=== PATIENT | male | born 1960 | race Caucasian/White ===

== ENCOUNTER 2019-01-14 17:47 | Inpatient (IN) | payer BC ==
--- NOTE | 2019-01-14 20:36 | MRI ---
MRI LUMBAR SPINE NONCONTRAST: DATE: 01/14/2019 HISTORY: 58-year-old male with low back pain and acute lower extremity weakness and numbness, intermittent COMPARISON: None FINDINGS: For the purposes of this report, it will be assumed that there are 5 lumbar-type vertebrae. Vertebral body heights are maintained. No scoliosis. Conus medullaris terminates at L1. Cauda equina is arranged in a symmetrical distribution throughout the thecal sac. T12-L1:Normal L1-2: Normal L2-3::Moderate to severe disc space narrowing. Mild endplate irregularity. Small focus of bone marrow edema around Schmorl's node at posterior aspect of L1 inferior endplate. Minimal degenerative retrolisthesis of L2 on L3 and diffuse disc bulge encroach upon ventral aspect of spinal canal, but t here is no significant central stenosis and no neural foraminal stenosis. Small bilateral facet joint effusions without high-grade facet DJD. L3-4::Disc space maintained. No central or neural foraminal stenosis. Mild to moderate bilateral face t DJD. Fluid between the L3 and L4 spinous processes. Severe bone marrow edema throughout the L3 and L4 spinous processes. Surrounding soft tissue edema in the bilateral posterior perivertebral spa ce extends laterally, extends superiorly up to the T12-L1 level, and inferiorly down to the sacral level. . L4-5: Bilateral L4 pars interarticularis defects resulting in grade 1 anterolisthesis of L4 on L5. Se michele disc space narrowing with endplate irregularity and Modic type I marrow edema of endplates. There is bone marrow edema in the bilateral facet complexes. Although there is no bony central spinal canal stenosis at the disc space level, there is a prominent epidural fat pad posteriorly and laterally that results in mild to moderate stenosis of the thecal sac at the disc space level. Howeve r, slightly superior to the disc space level, the transverse diameter of both the spinal canal and thecal sac are moderately narrowed. There is severe right neural foraminal stenosis with compression and deformity of the exiting right L4 nerve root by the pedicle superior to it and by lateral component of disc bulge and vertebral body inferior to it. Moderate stenosis of the left neural adina en. L5-S1:Disc space maintained. Mild disc bulge. No central stenosis. Mild bilateral neural foraminal st enosis. IMPRESSION: 1) bilateral L4 spondylolysis causing grade 1 spondylolisthesis at L4-5. 2) somewhat severe inflammatory/edematous changes throughout the posterior elements at L4-5, occurrin g between the spinous processes, with fluid collection between the spinous processes, and edema in the posterior paraspinal soft tissues radiating outward covering wide area. 3) severe degenerative disc disease at L4-5 with Modic type I marrow edema. 4) severe right neural foraminal stenosis at L4-5, with significant compression of the exiting right L4 nerve root. 5) bone marrow edema and surrounding soft tissue edema involving bilateral L4-5 facet complexes.
[2019-01-14] MEDS ORDERED: Ondansetron PF 4 MG/2 ML Vial ONE (22:17)
[2019-01-14] MEDS ORDERED: Cefepime 2 GM VIAL ONE (22:17)
[2019-01-14] MEDS ORDERED: Morphine 4 MG/ML VIAL ONE (22:17)
[2019-01-14] MEDS ORDERED: Sodium Chloride 0.9% 100 ML ONE (22:17)
[2019-01-14 22:27] LABS: #Basophils 0.1 thou/uL (0.0-0.2); #Eosinphils 0.1 thou/uL (0.0-0.7); #Lymphocytes 2.5 thou/uL (1.20-3.40); #Neutrophils 8.2 thou/uL (1.40-6.50); %Basophils 0.7 % (0.0-1.0); %Eosinophils 0.7 % (0.0-10.0); %Lymphocytes 21.2 % (21.0-51.0); %Monocytes 8.4 % (0.0-10.0); %Neutrophils 69.1 % (42.0-75.0); Hemoglobin 14.9 g/dL (14.0-18.0); Mean Corpuscular HGB CONC 35.2 g/dL (32.0-36.0); Mean Corpuscular Hemoglobin 32.6 pg (27.0-31.0); Mean Corpuscular Volume 92.4 fL (78.0-98.0); Platelet Count 210 thou/uL (130-400); RBC Distribution Width 11.4 % (11.5-14.5); Red Blood Cell (RBC) Count 4.57 mill/uL (4.70-6.10); White Blood Cell (WBC) Count 11.8 thou/uL (4.8-10.8)
[2019-01-14 22:49] LABS: ALT (SGPT) 39 U/L (8-55); AST (SGOT) 29 U/L (5-34); Albumin 4.5 g/dL (3.5-5.0); Alkaline Phosphatase 76 U/L (40-150); Anion Gap 14 mmol/L (10-20); BUN (Urea Nitrogen) 15 mg/dL (8.4-25.7); Bilirubin, Total 1.1 mg/dL (0.2-1.2); Calc. Creatinine Clearance 0 mL/min (70-130); Calcium 9.9 mg/dL (7.8-10.44); Carbon Dioxide 20 mmol/L (22-29); Chloride 100 mmol/L (98-107); Estimated GFR-MDRD Greater than 90; Globulin 2.4 g/dL (2.4-3.5); Glucose 100 mg/dL (70-105); Potassium 4.1 mmol/L (3.5-5.1); Protein, Total 6.9 g/dL (6.0-8.3); Sodium 130 mmol/L (136-145)
[2019-01-14] MEDS ORDERED: Ondansetron PF 4 MG/2 ML Vial IVP PRN (23:56)
[2019-01-14] MEDS ORDERED: Ondansetron ODT 4 MG TAB SL PRN (23:56)
[2019-01-15] MEDS ORDERED: Acetaminophen 325 MG TAB PO PRN (00:21)
[2019-01-15 00:31] VITALS: BMI 31.6
[2019-01-15] MEDS: Sodium Chloride 0.9% 1,000 ML IV SCH ×4 (00:42→23:28)
[2019-01-15] MEDS ORDERED: Vancomycin HCl 1 GM in Premix Bag 1 BAG IVPB SCH ×2 (00:45→09:00)
[2019-01-15] MEDS ORDERED: Morphine 2 MG/ML SYRINGE SLOW IVP PRN (00:50)
[2019-01-15] MEDS: Morphine 4 MG/ML VIAL SLOW IVP PRN ×4 (00:59→20:47)
--- NOTE | 2019-01-15 06:12 | HP ---
PRIMARY CARE DOCTOR: Dr. Berny Connell. CODE STATUS: Full code. TIME OF EVALUATION: 2300 hours. CHIEF COMPLAINT FOR THIS PATIENT: Severe pain in the lower back. HISTORY OF PRESENT ILLNESS: A 58-year-old male patient, past medical history of arthritis, but no other significant problems, came to the hospital after having severe back pain in the lower back. The patient reported that when he was trying to walk, he was unable to due to the pain. No clear triggers, no alleviating factors. He did report some leg weakness when he bends his back and he feels that legs are giving out, however, during physical exam, his strength is at baseline. Symptoms were reported as severe, 10/10, sudden onset. REVIEW OF SYSTEMS: CONSTITUTIONAL: No fever, chills, or generalized weakness. RESPIRATORY: No cough, sputum production, or shortness of breath. CARDIOVASCULAR: No chest pain or palpitation. GASTROINTESTINAL: No nausea. No vomiting, diarrhea, or abdominal pain. QUALITY CONTROL SCIENTIST: No dizziness, headache, or feeling lightheaded. GENITOURINARY: No burning on urination. BACK/SPINE/EXTREMITIES: The patient has lower lumbar spine severe pain with difficulty walking. All other systems were reviewed and negative except for the findings mentioned above. PAST MEDICAL HISTORY: As mentioned in HPI. PAST SURGICAL HISTORY: Staph to top of thigh below buttock. SOCIAL HISTORY: The patient uses tobacco, smokes 4 to 5 cigarettes a day. Lives at home with family. FAMILY HISTORY: Mother had a cancer. The father had renal cell carcinoma. KNOWN ALLERGIES: No known drug allergies. REPORTED MEDICATIONS: Tramadol for pain. PHYSICAL EXAMINATION: VITAL SIGNS: Blood pressure 159/87, heart rate 80, respiratory rate 22, temperature 98.2. Pain 10. Oxygen saturation was 98% on room air. GENERAL APPEARANCE: The patient is alert, oriented, not in acute distress. HEENT: Eyes, normal conjunctivae. Moist oral mucosa. Anicteric. No JVD. RESPIRATORY: Bilateral air entry. No rales. No wheezes. Symmetric expansion. CARDIOVASCULAR: Normal rate and regular rhythm. No murmurs. No gallops. No edema. ABDOMEN: Soft. Normal bowel sounds. MUSCULOSKELETAL: Baseline range of motion and strength except for lower extremities that seems to be weaker when the patient bends his back. The patient has a small tumefaction in the lower lumbar spine area that is painful to touch. SKIN: Warm, intact. No pallor. No rash. No redness. Peripheral pulses are present. Capillary refill seems to intact. NEUROLOGIC: No evidence of any new focal weakness. Cranial nerves seems to be intact. PSYCHIATRIC: The patient is in good mood. No anxiety. Optimal judgment. IMAGING STUDIES: Lumbar spine MRI was done. 1. The patient had bilateral L4 spondylosis causing grade 1 spondylolisthesis at L4-L5. 2. Somewhat severe inflammatory erythematous changes throughout the posterior elements at L4-L5, occurring in between the venous processes with fluid collection between the spinous processes and edema, posterior paraspinal soft tissue radiating all the way covering wide area. Severe degenerative disk disease at L4-L5 with Modic type 1 marrow edema. Severe right neural foraminal stenosis at L4-L5 with significant compression of the exiting right L4 nerve root. Surrounding bone marrow edema and surrounding soft tissue edema involving bilateral L4-L5 facet complexes. LABORATORY DATA: Reviewed. The patient has white count 11.8, hemoglobin 14.9, MCV 92.4, and platelet count 210. Chemistry; sodium 130, potassium 4.1, chloride 100, carbon dioxide 20, anion gap 14, BUN 15, creatinine 0.8. GFR normal. Glucose normal. Rest of the chemistry was normal. LFTs were normal. C-reactive protein 10.5. ASSESSMENT AND PLAN: The patient will be placed in the hospital with following medical problems: 1. Possible epidural abscess. Neurosurgery has been called for recommendations. The patient has been started on antibiotics and pain medication for symptoms control. 2. Hyponatremia, sodium 130, this is minimal. The patient will receive some normal saline. We will follow levels and treat accordingly. 3. Deep venous thrombosis prophylaxis. 4. Severe pain, needing opioid medications for optimal control. This will place the patient at high risk for complication from treatment. Job ID: [id number]
[2019-01-15 06:32] LABS: #Basophils 0.1 thou/uL (0.0-0.2); #Eosinphils 0.1 thou/uL (0.0-0.7); #Lymphocytes 2.4 thou/uL (1.20-3.40); #Monocytes 0.7 thou/uL (0.11-0.59); #Neutrophils 4.7 thou/uL (1.40-6.50); %Basophils 0.6 % (0.0-1.0); %Eosinophils 1.8 % (0.0-10.0); %Lymphocytes 29.9 % (21.0-51.0); %Monocytes 9.3 % (0.0-10.0); %Neutrophils 58.4 % (42.0-75.0); Hemoglobin 13.2 g/dL (14.0-18.0); Mean Corpuscular Hemoglobin 31.8 pg (27.0-31.0); Mean Corpuscular Volume 93.6 fL (78.0-98.0); Mean Platelet Volume 7.3 fL (7.4-10.4); Platelet Count 185 thou/uL (130-400); RBC Distribution Width 11.6 % (11.5-14.5); Red Blood Cell (RBC) Count 4.15 mill/uL (4.70-6.10)
[2019-01-15 07:02] LABS: Anion Gap 9 mmol/L (10-20); BUN (Urea Nitrogen) 13 mg/dL (8.4-25.7); Calc. Creatinine Clearance 166 mL/min (70-130); Calcium 9.2 mg/dL (7.8-10.44); Carbon Dioxide 24 mmol/L (22-29); Chloride 107 mmol/L (98-107); Estimated GFR-MDRD Greater than 90; Glucose 83 mg/dL (70-105); Potassium 3.9 mmol/L (3.5-5.1); Sodium 136 mmol/L (136-145)
[2019-01-15] MEDS: Cefepime 2 GM in Sodium Chloride 0.9% 100 ML IVPB SCH ×2 (08:49→20:46)
[2019-01-15] MEDS: Vancomycin HCl 1.75 GM in Sodium Chloride 0.9% 500 ML IVPB SCH ×2 (10:08→17:03)
--- NOTE | 2019-01-15 10:32 | PRG ---
DATE OF SERVICE: 01/15/2019 I personally interviewed and examined the patient, agreed with documentation of Tierra Olivia PA-C, dated 01/14/2019 and 01/15/2019. Briefly, Berny May is a 58-year-old gentleman with a longstanding history of low back pain that has gotten worse over the past few days. It got severe enough that he sought attention at an outside emergency facility, where imaging was read as suspicious for diskitis or epidural abscess. He was transferred here for further care. He did have elevated white count and C-reactive protein. This morning, he is neurologically intact. He is already out of bed and walking. He still has some significant back pain and he feels there is some swelling there that was not there in weeks past. His neurological function is good. His imaging does show spondylolisthesis at L4-L5. There is some epidural fat or potentially fluid. My plan for Mr. May is to treat with antibiotics if the source of his elevated white count and CRP is found. Urinalysis, urine culture, chest x-ray, blood culture, and sputum culture could all be considered. If there is no other source for infection in the entire body and we are left with imaging only of the lumbar spine and blood cultures may be positive and we should treat it as diskitis/osteomyelitis/epidural abscess. If no organism is found and sometime over the weekend, we can perform the laminectomy and obtain some material for culture. I am extremely hesitant to perform a definitive decompression and fusion for his spondylolisthesis in the setting of potential infection and would like that to be well under control, treated, and have no recurrence for at least six weeks after treatment before deciding to proceed with that operation. Job ID: [id number]
[2019-01-15] MEDS ORDERED: HYDROcodone/Acetaminophen 5/325 mg Tablet PO PRN (11:45)
[2019-01-15] MEDS: HYDROcodone/Acetaminophen 5/325 mg Tablet PO PRN (18:20)
--- NOTE | 2019-01-15 19:38 | PDOC.PN ---
- Subjective Encounter Start Date: 01/15/19 Encounter Start Time: 19:35 Subjective: f/u for severe L-spine pain with MRI showing inflammatory changes -: in the L4-L5 region of unclear significance. Currently receiving Cefepime/ -: Vancomcyin/Morphine Sulfate. Some improvement in back pain. - Objective Resuscitation Status - Order Detail: 01/15/19 00:21 Resuscitation Status Routine Resuscitation Status: FULL: Full Resuscitation MAR Reviewed: Yes Vital Signs & Weight: Vital Signs (12 hours) Temp Pulse Resp BP Pulse Ox 01/15/19 15:20 97.5 F L 67 20 132/84 99 01/15/19 11:06 97.3 F L 64 20 108/70 97 01/15/19 08:10 95 Weight Weight 240 lb I&O: 01/14/19 01/15/19 01/16/19 06:59 06:59 06:59 Intake Total 1600 Output Total 750 Balance 850 Result Diagrams: 01/15/19 05:02 01/15/19 05:02 Radiology Reviewed by me: Yes (MRI L-spine - multilevel DJD, inflammation L4-L5 post elements) Phys Exam - Physical Examination Constitutional: NAD HEENT: PERRLA, sclera anicteric, oral pharynx no lesions Neck: no nodes, no JVD, supple, full ROM Respiratory: no wheezing, no rales, no rhonchi, clear to auscultation bilateral S1, S2 Cardiovascular: RRR, no significant murmur, no rub, gallop Gastrointestinal: soft, non-tender, no distention, positive bowel sounds Musculoskeletal: no edema, pulses present Neurological: normal sensation, moves all 4 limbs Psychiatric: A&O x 3 Skin: normal turgor, cap refill <2 seconds Dx/Plan (1) Severe back pain Code(s): M54.9 - DORSALGIA, UNSPECIFIED Status: Acute Comment: Continue Morphine Sulfate IV and [facility] for pain control, add Toradol IV (2) Discitis of lumbar region Code(s): M46.46 - DISCITIS, UNSPECIFIED, LUMBAR REGION Status: Acute Comment : Suspected, continue Cefepime/Vanc, consider aspiration for fluid sample/cx, pain control (3) Hyponatremia Code(s): E87.1 - HYPO-OSMOLALITY AND HYPONATREMIA Status: Acute Comment: Resolved, serial Na+ monitoring (4) DJD (degenerative joint disease), lumbar Code(s): M47.816 - SPONDYLOSIS W/O MYELOPATHY OR RADICULOPATHY, LUMBAR REGION Status: Chronic Qualifiers: Spinal osteoarthritis complication: other spinal osteoarthritis Qualified Code(s): M47.896 - Other spondylosis, lumbar region Comment: Pain control, Neurosurgery consultation appreciated, PT/OT for evaluation - Plan continue antibiotics, PT/OT, social media manager, DVT proph w/SCDs Stable currently -: Continue Cefepime/Vanc -: Pain control with Morphine Sulfate IV -: Add Toradol 30mg IV q6h prn -: OOB/ambulate * .
[2019-01-15] MEDS: Ketorolac Tromethamine 30 MG/ML VIAL IVP SCH (23:20)
[2019-01-15] MEDS: traMADol HCl 50 MG TAB PO PRN (23:20)
[2019-01-16] MEDS: HYDROcodone/Acetaminophen 5/325 mg Tablet PO PRN ×4 (00:15→20:53)
[2019-01-16 00:31] LABS: Vancomycin, Trough 18.4 ug/mL
[2019-01-16] MEDS: Vancomycin HCl 1.75 GM in Sodium Chloride 0.9% 500 ML IVPB SCH ×3 (01:29→17:07)
[2019-01-16] MEDS: Ketorolac Tromethamine 30 MG/ML VIAL IVP SCH ×4 (05:41→23:33)
[2019-01-16] MEDS: Morphine 4 MG/ML VIAL SLOW IVP PRN ×2 (07:34→17:05)
--- NOTE | 2019-01-16 07:52 | PRG ---
DATE OF SERVICE: 01/16/2019 I saw Mr. May is in this office early this morning. He feels much better than he did yesterday. I suspect the empiric antibiotic therapy is working. Unfortunately, I do not see urine cultures nor CXR. He had some blood culture that was done, but I do not see it reported yet. There are no new complaints in the legs. Vital signs are relatively stable. Neurological examination is stable as well. To Mr. May, a surgical intervention would be a backup plan. There are no organisms to be isolated from blood cultures, from the urine culture and from sputum. If his chest x-ray shows any infiltrate or from a CT-guided aspirate of the epidural space, then that would be preferable to open surgery. Our Neurosurgery Team will be available if our colleagues in Infectious Disease and Medicine want to put him through a surgical intervention to obtain sample for culture. Hopefully, that can be avoided. Job ID: [id number] MTDD
[2019-01-16] MEDS: Cefepime 2 GM in Sodium Chloride 0.9% 100 ML IVPB SCH ×2 (08:36→20:45)
[2019-01-16] MEDS: Sodium Chloride 0.9% 1,000 ML IV SCH ×3 (08:37→16:31)
[2019-01-16 09:13] LABS: Bilirubin Negative (Negative); Blood, Urine Negative (Negative); Clarity CLEAR (Clear); Glucose, Urine (Dipstick) Negative (Negative); Leukocyte Negative (Negative); Nitrite Negative (Negative); Protein, Urine (Dipstick) Negative (Neg-Trace); Specific Gravity, Urine 1.017 (1.002-1.036); Urobilinogen 0.2 mg/dL (0.2-1.0)
[2019-01-16 09:16] LABS: Bacteria/HPF None Seen HPF (None Seen); Hyaline Casts/LPF 0-3 HYALINE CAST LPF (0-3 Hyaline); Squamous Epithelial None Seen HPF (0-3); WBC/HPF None Seen HPF (0-3)
[2019-01-16] MEDS ORDERED: Lidocaine 5% Patch TD SCH (11:00)
--- NOTE | 2019-01-16 11:21 | RAD ---
EXAM: Chest 2 views: HISTORY: Infection and right foot pain for 2 days COMPARISON: None. FINDINGS: There is a normal-sized cardiomediastinal silhouette. There is no evidence of consolidation, mass, or pleural effusion. The bones are unremarkable. IMPRESSION: No evidence of acute cardiopulmonary disease
[2019-01-16] MEDS: traMADol HCl 50 MG TAB PO PRN ×2 (14:57→22:14)
--- NOTE | 2019-01-16 15:19 | PDOC.PN ---
- Subjective Encounter Start Date: 01/16/19 Encounter Start Time: 15:15 Subjective: f/u for lumbar inflammatory process/?diskitis or epidural abscess -: on Cefepime/Vanc. c/o back pain currently tx with Morphine Sulfate/ -: Toradol/Laurier. - Objective Resuscitation Status - Order Detail: 01/15/19 00:21 Resuscitation Status Routine Resuscitation Status: FULL: Full Resuscitation MAR Reviewed: Yes Vital Signs & Weight: Vital Signs (12 hours) Temp Pulse Resp BP BP Pulse Ox 01/16/19 07:55 97.7 F 68 18 138/60 94 L 01/16/19 07:50 97.7 F 68 138/60 94 L 01/16/19 07:30 122/77 01/16/19 04:00 97.9 F 54 L 18 97/63 96 Weight Weight 240 lb I&O: 01/15/19 01/16/19 01/17/19 06:59 06:59 06:59 Intake Total 1600 2186 Output Total 750 2 Balance 850 2184 Result Diagrams: 01/15/19 05:02 01/15/19 05:02 Additional Labs: Microbiology 01/14/19 22:30 Venous blood - Left Arm Blood Culture - Preliminary Specimen has been received and culture in progress. No Growth to date. 01/14/19 22:16 Venous blood - Right Hand Blood Culture - Preliminary Specimen has been received and culture in progress. No Growth to date. Laboratory Tests 01/14/19 01/14/19 01/14/19 22:16 22:16 22:16 WBC 11.8 H Sodium 130 L C-Reactive Protein 10.54 H Radiology Reviewed by me: Yes (PCXR - negative) Phys Exam - Physical Examination Constitutional: NAD HEENT: PERRLA, sclera anicteric, oral pharynx no lesions Neck: no nodes, no JVD, supple, full ROM Respiratory: no wheezing, no rales, no rhonchi, clear to auscultation bilateral S1, S2 Cardiovascular: RRR, no significant murmur, no rub, gallop Gastrointestinal: soft, non-tender, no distention, positive bowel sounds Musculoskeletal: no edema, pulses present Neurological: normal sensation, moves all 4 limbs Psychiatric: A&O x 3 Skin: normal turgor, cap refill <2 seconds Dx/Plan (1) Discitis of lumbar region Code(s): M46.46 - DISCITIS, UNSPECIFIED, LUMBAR REGION Status: Acute Comment : Suspected vs epidural abscess with inflammatory process, continue Cefepime/ Vanc, consider aspiration for fluid sample/cx, pain control, consult ID for recommendations, likely may need 6wk course of IV therapy (2) Severe back pain Code(s): M54.9 - DORSALGIA, UNSPECIFIED Status: Acute Comment: Continue Morphine Sulfate IV and [place]ier for pain control, add Toradol IV (3) Hyponatremia Code(s): E87.1 - HYPO-OSMOLALITY AND HYPONATREMIA Status: Acute Comment: Resolved, serial Na+ monitoring (4) DJD (degenerative joint disease), lumbar Code(s): M47.816 - SPONDYLOSIS W/O MYELOPATHY OR RADICULOPATHY, LUMBAR REGION Status: Chronic Qualifiers: Spinal osteoarthritis complication: other spinal osteoarthritis Qualified Code(s): M47.896 - Other spondylosis, lumbar region Comment: Pain control, Neurosurgery consultation appreciated, PT/OT for evaluation - Plan continue antibiotics, PT/OT, social human services assistants, out of bed/ambulate, DVT proph w/ SCDs Stable currently -: Continue Cefepime/Vanc -: Pain control with Morphine Sulfate/Laurier/Toradol -: Add Lidocaine patch -: Consult ID service * Decrease IVF's 75ml/h
[2019-01-16] MEDS: Senokot S 8.6-50 MG TAB PO SCH (20:46)
[2019-01-16] MEDS ORDERED: Lidocaine Patch Removal TOP SCH (23:00)
[2019-01-17 00:22] LABS: Vancomycin, Trough 25.7 ug/mL
[2019-01-17] MEDS: HYDROcodone/Acetaminophen 5/325 mg Tablet PO PRN ×3 (02:46→17:36)
[2019-01-17] MEDS: Sodium Chloride 0.9% 1,000 ML IV SCH (06:00)
[2019-01-17] MEDS: Vancomycin HCl 1 GM in Premix Bag 1 BAG IVPB SCH ×3 (06:01→21:40)
[2019-01-17] MEDS: Ketorolac Tromethamine 30 MG/ML VIAL IVP SCH ×4 (06:01→23:03)
[2019-01-17] MEDS: traMADol HCl 50 MG TAB PO PRN ×3 (08:37→21:01)
[2019-01-17] MEDS: Senokot S 8.6-50 MG TAB PO SCH ×2 (08:39→20:52)
[2019-01-17] MEDS: Lidocaine 5% Patch TD SCH (08:39)
[2019-01-17] MEDS: Cefepime 2 GM in Sodium Chloride 0.9% 100 ML IVPB SCH ×2 (08:50→20:52)
--- NOTE | 2019-01-17 09:24 | PRG ---
DATE OF SERVICE: 01/17/2019 Note entered in error. Job ID: [id number] MTDD
--- NOTE | 2019-01-17 10:12 | PRG ---
DATE OF SERVICE: 01/17/2019 I saw Mr. May in his hospital room this morning. He is actually walking around quite easily. He has got much better since the antibiotics were started. Blood cultures are still pending. The urinalysis was done and chest x-ray was done. This morning, the vital signs are stable with blood pressure in the 110s and a heart rate of 51. There is no fever recorded since his admission. Mr. May's neurological function is quite good. There are no deficits in strength or sensation in lower extremities. I do not believe the plan for Mr. May should involve surgical intervention. We will sign off the case and be available for questions. If a CT-guided aspirate can be done, there are 2 areas, where the diagnosis can be made. I think the most likely area to obtain fluid for culture is the interspinous space between the L4 and L5 spinous process. This seems to be a fluid collection there and looks much more suspicious than anything in the canal or in the disk space. A backup area for sampling could be an approach through the interlaminar space at L4-L5 to access the epidural fat. This could be some liquid, but I doubt it. Sample could be obtained there, but I think it is more likely that the aforementioned interspinous area at L3-L4 is the most likely to give an answer. Our Neurosurgery Team will be available for repeat consultation should the need arise. I do not think surgery is warranted. Job ID: [id number]
--- NOTE | 2019-01-17 15:19 | PDOC.PN ---
- Subjective Encounter Start Date: 01/17/19 Encounter Start Time: 15:15 Subjective: f/u for lumbare epidural abscess/diskitis inflammatory process on -: Cefepime/Vanc. Feels better overall. No fever or chills. Voiding ok. - Objective Resuscitation Status - Order Detail: 01/15/19 00:21 Resuscitation Status Routine Resuscitation Status: FULL: Full Resuscitation MAR Reviewed: Yes Vital Signs & Weight: Vital Signs (12 hours) Temp Pulse Resp BP BP Pulse Ox 01/17/19 11:12 97.4 F L 53 L 16 134/59 L 95 01/17/19 08:00 18 L 01/17/19 07:52 98.0 F 60 18 136/80 97 01/17/19 03:34 97.6 F 51 L 16 111/65 99 Weight Weight 240 lb I&O: 01/16/19 01/17/19 01/18/19 06:59 06:59 06:59 Intake Total 2186 2700 1200 Output Total 2 Balance 2184 2700 1200 Result Diagrams: 01/15/19 05:02 01/15/19 05:02 Additional Labs: Microbiology 01/16/19 08:25 Urine Bladder Tap Urine Culture - Preliminary NO GROWTH AT 24 HOURS 01/14/19 22:30 Venous blood - Left Arm Blood Culture - Preliminary Specimen has been received and culture in progress. No Growth to date. 01/14/19 22:30 Venous blood - Left Arm Blood Culture - Preliminary NO GROWTH AT 48 HOURS 01/14/19 22:16 Venous blood - Right Hand Blood Culture - Preliminary Specimen has been received and culture in progress. No Growth to date. 01/14/19 22:16 Venous blood - Right Hand Blood Culture - Preliminary NO GROWTH AT 48 HOURS Laboratory Tests 01/14/19 01/14/19 01/14/19 22:16 22:16 22:16 WBC 11.8 H Sodium 130 L C-Reactive Protein 10.54 H Phys Exam - Physical Examination Constitutional: NAD HEENT: PERRLA, sclera anicteric, oral pharynx no lesions Neck: no nodes, no JVD, supple, full ROM Respiratory: no wheezing, no rales, no rhonchi, clear to auscultation bilateral S1, S2 Cardiovascular: RRR, no significant murmur, no rub, gallop Gastrointestinal: soft, non-tender, no distention, positive bowel sounds Musculoskeletal: no edema, pulses present Neurological: normal sensation, moves all 4 limbs Psychiatric: A&O x 3 Skin: normal turgor, cap refill <2 seconds Dx/Plan (1) Discitis of lumbar region Code(s): M46.46 - DISCITIS, UNSPECIFIED, LUMBAR REGION Status: Acute Comment : Suspected vs epidural abscess with inflammatory process, continue Cefepime/ Vanc, consider aspiration for fluid sample/cx, pain control, appreciate ID for recommendations, PICC line placement and plan for outpt IV abx (2) Severe back pain Code(s): M54.9 - DORSALGIA, UNSPECIFIED Status: Acute Comment: Continue Morphine Sulfate IV and [place] for pain control, add Toradol IV, improved (3) Hyponatremia Code(s): E87.1 - HYPO-OSMOLALITY AND HYPONATREMIA Status: Acute Comment: Resolved, serial Na+ monitoring (4) DJD (degenerative joint disease), lumbar Code(s): M47.816 - SPONDYLOSIS W/O MYELOPATHY OR RADICULOPATHY, LUMBAR REGION Status: Chronic Qualifiers: Spinal osteoarthritis complication: other spinal osteoarthritis Qualified Code(s): M47.896 - Other spondylosis, lumbar region Comment: Pain control, Neurosurgery consultation appreciated, PT/OT for evaluation - Plan plan discussed w/ family, continue antibiotics, social and political studies professor, out of bed/ ambulate, DVT proph w/SCDs Stable overall -: Continue Cefepime/Vancomycin -: PICC line placement -: Pain control with Morphine/Toradol/Lidocaine patch -: Saline lock IVF * .
[2019-01-17] MEDS ORDERED: Lorazepam 1 MG TAB PO SCH (16:15)
--- NOTE | 2019-01-17 16:23 | CON ---
DATE OF CONSULTATION: 01/17/2019 REASON FOR CONSULTATION: Infection/inflammatory process, LS spine area. HISTORY OF PRESENT ILLNESS: A 58-year-old patient, who has history of degenerative joint disease and alcoholic beverage dependency in the past and chronic smoking as well as a chronic draining sinus in the right gluteal region for the past 13 years, who developed fairly rapid progression of lower lumbosacral spine pain, which became intense to the point that he could not walk. He also noticed some lower extremity weakness. He did not have any headaches. No visual symptoms, sore throat, odynophagia, or dysphagia. No dyspnea or chest pain. No cough or sputum production. No abdominal pain or diarrhea. No genitourinary symptoms. No fever. 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 Also, history of alcohol abuse, chronic smoking, and fatty liver. SOCIAL HISTORY: Chronic smoking. Used to drink a case of beer a day up until 7 years ago and is completely abstinent. The patient works as a geronimo. Lives in [place] with family. ALLERGIES: NONE. CURRENT MEDICATIONS: 1. Hydrocodone. 2. Cefepime. 3. Toradol. 4. Morphine. 5. Zofran. 6. Senokot. 7. Vancomycin. PHYSICAL EXAMINATION: VITAL SIGNS: T-max 97.9, blood pressure 130/50, pulse 53, respirations 16, and O2 saturation 95%. SKIN: Shows the area of scar in the inner aspect of the right gluteal region, there is no erythema or drainage noticeable at this time. HEENT: Ocular movements conjugate. Conjunctivae normal. Nasal passages patent. Oropharyngeal exam normal. NECK: Supple. No jugular vein distention or carotid bruits. No thyromegaly. No lymphadenopathy. LUNGS: Symmetric, clear breath sounds. HEART: S1 and S2, regular rate. No S3 or S4. ABDOMEN: Soft, not distended or tender. No ascites. No bladder distention. GENITALIA: No genital abnormalities. MUSCULOSKELETAL: No joint inflammatory activity noted outside the area of involvement. No edema. Pulses 1+ in dorsalis pedis. Strength in upper and lower extremities is 5/5. NEUROLOGIC: Cognitive function appears to be intact. LABORATORY DATA: White cell count was 11.8 and now is 8, hemoglobin is 14 and now 13, and platelets are normal. Differential normal. Chemistry; hyponatremia on admission at 130, now is corrected to 136. Other elements are normal except for CRP, which was 10.54. Urinalysis normal. Vancomycin trough was 25.7. Microbiology; 2 sets of blood culture, no growth at 48 hours. Urine culture, no growth at 24 hours. IMAGING STUDY: Chest x-ray with no acute cardiopulmonary disease. Lumbar spine MRI, L4 spondylosis and inflammatory edematous changes throughout posterior elements, L4-L5 occurring between the spinous processes with fluid collection between the spinous processes and edema in the posterior paraspinal soft tissues radiating towards covering a wide area. ASSESSMENT: 1. History of prior alcohol abuse, currently abstinent. 2. Fatty liver. 3. Degenerative joint disease. 4. Chronic draining sinus, right gluteal region with previously reported Methicillin-resistant Staphylococcus aureus infection, which has been I and D's x2, but has been draining as recently as 2 weeks prior to this admission. 5. MRI findings suggestive of inflammatory/infectious process at L4-L5 spinal region and paraspinal region. DISCUSSION: The most likely scenario is seeding of the area from this chronic inflammatory process in the right gluteal region. There is a chance that this is communicating with the lumbosacral spine and paraspinal tissues. We will go ahead and order an MRI of the pelvis with contrast to follow up on the lumbosacral spine MRI and plan to treat for protracted periods of time with vancomycin and either Rocephin or cefepime. PICC line insertion. I discussed the potential adverse reactions from the antimicrobials including hypersensitivity reactions, diarrhea, and other types of toxicities and adverse reactions. The patient understood and agreed with management and recommendations. Job ID: [id number]
[2019-01-17] MEDS: Lidocaine Patch Removal TOP SCH (20:52)
[2019-01-18] MEDS: HYDROcodone/Acetaminophen 5/325 mg Tablet PO PRN ×5 (00:04→23:20)
[2019-01-18 05:56] LABS: Vancomycin, Trough 18.2 ug/mL
[2019-01-18] MEDS: Ketorolac Tromethamine 30 MG/ML VIAL IVP SCH ×4 (05:56→23:14)
[2019-01-18] MEDS: Vancomycin HCl 1 GM in Premix Bag 1 BAG IVPB SCH ×3 (06:07→22:12)
[2019-01-18] MEDS: Cefepime 2 GM in Sodium Chloride 0.9% 100 ML IVPB SCH ×2 (09:10→21:07)
[2019-01-18] MEDS: Senokot S 8.6-50 MG TAB PO SCH ×2 (09:12→21:07)
[2019-01-18] MEDS: traMADol HCl 50 MG TAB PO PRN ×3 (09:17→21:08)
--- NOTE | 2019-01-18 10:51 | SPC ---
Sonographic guided left upper extremity PICC placement HISTORY: Back infection. FINDINGS: After explaining the procedure and answering all questions, left upper extremity was preppe d and draped in usual sterile fashion. Sterile technique, buffered local anesthesia, sonographic guidance, and a 22-gauge needle were used to carefully access the left basilic vein. Standard [employer] ue was used to place the tip of a 5 [place] PICC so that the tip lies at the level of the superior vena cava. The catheter was flushed and secured externally. Patient tolerated the procedure well and was returned in unchanged condition. Fluoroscopy time 0 seconds. IMPRESSION: Left upper extremity PICC is ready for use.
[2019-01-18] MEDS: Lidocaine 5% Patch TD SCH (11:21)
--- NOTE | 2019-01-18 12:00 | MRI ---
MRI pelvis with and without gadolinium contrast HISTORY: Chronic pelvic infection. Drainage from right gluteal wound. FINDINGS: Bone marrow signal of the pelvis is within normal limits. Urinary bladder has a normal appe arance. No free fluid or mass evident within the pelvis. Marker placed at the right lower apparent midline gluteal level indicates area of wound. A subtle dillon ear abnormality within the fat extends from the right intergluteal fold superiorly to the right side of the upper anal musculature. The abnormality shows subtle enhancement after gadolinium adminis tration but no internal fluid and no connection to a fluid pocket in the pelvis. IMPRESSION: Linear scar at the right intergluteal region extending to the right side of the upper kalee musculature. It shows mild internal enhancement but does not contain fluid. No evidence of abscess.
--- NOTE | 2019-01-18 13:53 | CON ---
DATE OF CONSULTATION: HISTORY OF PRESENT ILLNESS: Mr. May reported to the emergency department yesterday for intractable back pain from an outside ED, [facility]. He states that there is swelling in the center of his back. He states that he has had chronic back pain along the belt line for quite some time; however, 2 days ago, while at work, he was bending over and felt a sharp pain get up. He states that he felt this lump, did not go to work yesterday, went to the emergency department. In the [facility] ED, CT was performed. They were concerned for possible epidural abscess; therefore, [facility] for MRI. Today, the patient is resting in his hospital bed. He is able to get in and out without significant pain. He has been using the restroom without any difficulty. The patient describes pain in the low back, mostly around the S3 vertebra and radiates upward. There is a swelling, that is painful . The patient denies any numbness or tingling. Denies fever or chills. No radiating leg pain no bowel or bladder dysfunction. REVIEW OF SYSTEMS: A 10-point review of systems has been completed and is negative other than stated in the above HPI. PAST MEDICAL HISTORY: PAST SURGICAL HISTORY: SOCIAL HISTORY: The patient denies alcohol use. Denies drug use. He is a current tobacco user and smokes approximately 4 or 5 cigarettes a day. He lives in the home with his family. ALLERGIES: NO KNOWN DRUG ALLERGIES. MEDICATIONS: Tramadol. PHYSICAL EXAMINATION: VITAL SIGNS: Temperature 97.5, heart rate 67, respirations 20, and O2 sats 95% on room air. Blood pressure in the morning was 90/57. GENERAL: The patient has been afebrile, appears nontoxic. He is resting in his hospital bed. Does not appear to be in any visible distress. HEENT: Head is normocephalic and atraumatic. Pupils are equal, round, and reactive to light. Extraocular movements are intact. Hearing is intact. Moist mucous membranes. RESPIRATIONS: Normal work of breathing on room air. EXTREMITIES: Upper extremity has full range of motion. Normal strength bilaterally in lower extremities. Negative single leg raise bilaterally. Normal strength in hip flexion, knee flexion, knee extension, dorsiflexion, plantar flexion, EHL. BACK: There is tenderness in midline lumbar spine and a notable swelling. NEUROLOGIC: The patient is alert and oriented x3. Normal attention span. Speech is spontaneous and fluent. content, appropriate. Normal gait. No focal motor or sensory deficits. IMAGING: MRI of the lumbar spine, bilateral L4 spondylolis grade 1 spondylolisthesis at L4-L5. throughout the posterior elements of L4-L5 fluid collection was seen between the spinous processes and into soft tissue ASSESSMENT AND PLAN: The patient is a -ytbl-kap male, who has worsening back pain with degenertive changes in the lumbar spine with inflammatory markers, elevated WBC and CRP. at this time there is no emergent surgical intereevention necessary. The hospitalist can work up for any other reasons for elevated WBC and CRP. For more detailed plan see DR. Llamasaints progress note. any questions please contact the Neurosurgery team Job ID: [id number] MTDD
--- NOTE | 2019-01-18 15:05 | PRG ---
DATE OF SERVICE: 01/18/2019 SUBJECTIVE: He is feeling very well. Pain has completely resolved. No respiratory symptoms or abdominal pain. No diarrhea. OBJECTIVE: VITAL SIGNS: Normal. LUNGS: Clear. HEART: S1-S2, regular rate. ABDOMEN: Soft. NEUROLOGIC: Noncontributory. LABORATORY DATA: White cell count 8.0, hemoglobin 13, and platelets 185. Chemistry was normal. PICC line has been inserted. Blood cultures, no growth at 48 hours. Urine culture, no growth. IMAGING STUDIES: Pelvis MRI showed an area with a linear scar at the right intergluteal region extending to the right side of the upper anal musculature with mild internal enhancement. ASSESSMENT AND DISCUSSION: Lumbosacral infection with this chronic drainage from the right gluteal region, which is consistent with fistulous tract. We will have General Surgery evaluated this and see if they think it needs to be probed or not. PLAN: Discharge on current antimicrobials. End date of therapy around February 28 approximately. Job ID: [id number]
--- NOTE | 2019-01-18 15:54 | PDOC.PN ---
- Subjective Encounter Start Date: 01/18/19 Encounter Start Time: 15:55 Subjective: f/u for lumbar inflammatory/infectious process with likely fistulous -: tract from upper gluteal region. Receiving Cefepime/Vanc and overall -: doing well. PICC line placed LUE today. - Objective Resuscitation Status - Order Detail: 01/15/19 00:21 Resuscitation Status Routine Resuscitation Status: FULL: Full Resuscitation MAR Reviewed: Yes Vital Signs & Weight: Vital Signs (12 hours) Temp Pulse Resp BP Pulse Ox 01/18/19 11:40 97.7 F 56 L 20 125/76 96 01/18/19 07:59 97.6 F 58 L 18 133/77 98 01/18/19 04:00 97.6 F 50 L 16 114/73 98 Weight Weight 240 lb I&O: 01/17/19 01/18/19 01/19/19 06:59 06:59 06:59 Intake Total 2700 3150 Balance 2700 3150 Result Diagrams: 01/15/19 05:02 01/15/19 05:02 Additional Labs: Microbiology 01/16/19 08:25 Urine Bladder Tap Urine Culture - Preliminary NO GROWTH AT 24 HOURS 01/14/19 22:30 Venous blood - Left Arm Blood Culture - Preliminary Specimen has been received and culture in progress. No Growth to date. 01/14/19 22:30 Venous blood - Left Arm Blood Culture - Preliminary NO GROWTH AT 48 HOURS 01/14/19 22:16 Venous blood - Right Hand Blood Culture - Preliminary Specimen has been received and culture in progress. No Growth to date. 01/14/19 22:16 Venous blood - Right Hand Blood Culture - Preliminary NO GROWTH AT 48 HOURS Laboratory Tests 01/14/19 01/14/19 01/14/19 22:16 22:16 22:16 WBC 11.8 H Sodium 130 L C-Reactive Protein 10.54 H Radiology Reviewed by me: Yes (Pelvic MRI - fistulous tract in upper gluteal region) Phys Exam - Physical Examination Constitutional: NAD HEENT: PERRLA, sclera anicteric, oral pharynx no lesions Neck: no nodes, no JVD, supple, full ROM Respiratory: no wheezing, no rales, no rhonchi, clear to auscultation bilateral S1, S2 Cardiovascular: RRR, no significant murmur, no rub, gallop Gastrointestinal: soft, non-tender, no distention, positive bowel sounds Musculoskeletal: no edema, pulses present Neurological: normal sensation, moves all 4 limbs Psychiatric: A&O x 3 Skin: normal turgor, cap refill <2 seconds Dx/Plan (1) Discitis of lumbar region Code(s): M46.46 - DISCITIS, UNSPECIFIED, LUMBAR REGION Status: Acute Comment : Suspected vs epidural abscess with inflammatory process, continue Cefepime/ Vanc, consider aspiration for fluid sample/cx, pain control, appreciate ID for recommendations, PICC line placement today, plan for outpt IV abx with Cefepime/ Vanc until 02/28/19 (2) Severe back pain Code(s): M54.9 - DORSALGIA, UNSPECIFIED Status: Acute Comment: Continue Morphine Sulfate IV and [place] for pain control, add Toradol IV, improved (3) Hyponatremia Code(s): E87.1 - HYPO-OSMOLALITY AND HYPONATREMIA Status: Acute Comment: Resolved, serial Na+ monitoring (4) DJD (degenerative joint disease), lumbar Code(s): M47.816 - SPONDYLOSIS W/O MYELOPATHY OR RADICULOPATHY, LUMBAR REGION Status: Chronic Qualifiers: Spinal osteoarthritis complication: other spinal osteoarthritis Qualified Code(s): M47.896 - Other spondylosis, lumbar region Comment: Pain control, Neurosurgery consultation appreciated, PT/OT for evaluation - Plan plan discussed w/ family, continue antibiotics, PT/OT, long term care social worker, out of bed/ambulate, DVT proph w/SCDs Stable currently -: Continue Cefepime/Vancomycin IV until 02/28/19 -: Gen Surgery consult for any further recommendations/mgmt -: Pain control as clinically indicated -: Likely home in 24h * .
[2019-01-18] MEDS: Lidocaine Patch Removal TOP SCH (21:09)
[2019-01-19] MEDS: traMADol HCl 50 MG TAB PO PRN ×4 (03:24→20:42)
[2019-01-19 05:32] LABS: Vancomycin, Trough 18.6 ug/mL
[2019-01-19] MEDS: Ketorolac Tromethamine 30 MG/ML VIAL IVP SCH ×3 (05:46→18:23)
[2019-01-19] MEDS: HYDROcodone/Acetaminophen 5/325 mg Tablet PO PRN ×3 (05:47→18:21)
[2019-01-19] MEDS: Vancomycin HCl 1 GM in Premix Bag 1 BAG IVPB SCH ×3 (05:47→21:01)
[2019-01-19] MEDS: Cefepime 2 GM in Sodium Chloride 0.9% 100 ML IVPB SCH (09:21)
[2019-01-19] MEDS: Senokot S 8.6-50 MG TAB PO SCH ×2 (09:23→20:42)
[2019-01-19] MEDS: Lidocaine 5% Patch TD SCH (09:53)
--- NOTE | 2019-01-19 13:54 | PDOC.PN ---
- Subjective Encounter Start Date: 01/19/19 Encounter Start Time: 13:53 Mr. May was seen today in follow-up of Lumbar Spinal infection. He continues to have some back pain, but otherwise he is ok. - Objective Resuscitation Status - Order Detail: 01/15/19 00:21 Resuscitation Status Routine Resuscitation Status: FULL: Full Resuscitation MAR Reviewed: Yes Vital Signs & Weight: Vital Signs (12 hours) Temp Pulse Resp BP BP Pulse Ox 01/19/19 11:05 98.9 F 63 12 121/69 95 01/19/19 07:20 97.9 F 60 16 137/85 96 01/19/19 04:00 97.8 F 67 16 102/66 99 Weight Weight 240 lb I&O: 01/18/19 01/19/19 01/20/19 06:59 06:59 06:59 Intake Total 3150 1250 1300 Balance 3150 1250 1300 Result Diagrams: 01/15/19 05:02 01/15/19 05:02 Phys Exam - Physical Examination HEENT: PERRLA Respiratory: no wheezing, no rales, no rhonchi, clear to auscultation bilateral Cardiovascular: RRR, no significant murmur, no rub Gastrointestinal: soft, non-tender, no distention, positive bowel sounds Musculoskeletal: no edema, pulses present Neurological: non-focal Dx/Plan (1) Discitis of lumbar region Code(s): M46.46 - DISCITIS, UNSPECIFIED, LUMBAR REGION Status: Acute Comment : Suspected vs epidural abscess with inflammatory process, continue Cefepime/ Vanc, consider aspiration for fluid sample/cx, pain control, appreciate ID for recommendations, PICC line placement today, plan for outpt IV abx with Cefepime/ Vanc until 02/28/19 (2) DJD (degenerative joint disease), lumbar Code(s): M47.816 - SPONDYLOSIS W/O MYELOPATHY OR RADICULOPATHY, LUMBAR REGION Status: Chronic Qualifiers: Spinal osteoarthritis complication: other spinal osteoarthritis Qualified Code(s): M47.896 - Other spondylosis, lumbar region Comment: Pain control, Neurosurgery consultation appreciated, PT/OT for evaluation - Plan * Lumbar Spinal Infection- continue Vancomycin and Maxepime * Awaiting Surgery evaluation for possible exploration of the right gluteal region due to concern for sinus fistulous tract * OA- stable * Will consult Case Management to help arrage Outpatient antibiotics .
--- NOTE | 2019-01-19 18:07 | HP ---
HISTORY OF PRESENT ILLNESS: Berny May is a 58-year-old male admitted to the hospital for back problems. He is seen by hospitalist, Dr. Heck and Dr. Browne. He has a lumbosacral infection, that Dr. Browne is treating him with antibiotics. The patient reports he had a right buttock abscess drainage. From talking to the patient and viewing the wound, it probably was a perirectal abscess. He gives a typical history that since 2002 or 2003, he has had intermittent drainage from this wound, it will become fluctuant and then drain. This is typical of a [id number]. Evaluation reveals that his right gluteal area and perianal area about 3 cm from the anus, there are several little clefts. There is no active infection or drainage at this time. I cannot probe a tract at this time. ASSESSMENT/PLAN: Probable [id number]. I doubt this has anything to do with his lumbosacral problem. Odznctw-vg-[id number] was not usually a problem that would seed such a thing. This could be dealt with at a later time. I would recommend that he return to see me as an outpatient or consider seeing a colorectal surgeon regarding exam under anesthesia, evaluation, possible fistulotomy, possible [place] placement. At this point, I will see him as needed. He can follow up with me as an outpatient as needed or see a colorectal surgeon as an outpatient. The patient does live in [place], [place]. He may prefer to see a colorectal surgeon in the [place] area. At this point, I will see him as needed. Job ID: [id number]
[2019-01-19] MEDS: Lidocaine Patch Removal TOP SCH (21:02)
[2019-01-20] MEDS: Ketorolac Tromethamine 30 MG/ML VIAL IVP SCH ×3 (00:09→12:24)
[2019-01-20] MEDS: HYDROcodone/Acetaminophen 5/325 mg Tablet PO PRN ×3 (00:10→12:23)
[2019-01-20] MEDS: traMADol HCl 50 MG TAB PO PRN ×3 (02:39→14:59)
[2019-01-20 05:59] LABS: Vancomycin, Trough 17.7 ug/mL
[2019-01-20] MEDS: Vancomycin HCl 1 GM in Premix Bag 1 BAG IVPB SCH ×2 (06:09→13:35)
[2019-01-20] MEDS: Lidocaine 5% Patch TD SCH (08:25)
[2019-01-20] MEDS: Senokot S 8.6-50 MG TAB PO SCH (08:25)
[2019-01-20] MEDS ORDERED: Clopidogrel Bisulfate 75 MG TAB ONE (08:27)
--- NOTE | 2019-01-20 12:16 | PDOC.PN ---
- Subjective Encounter Start Date: 01/20/19 Encounter Start Time: 12:15 Mr. May was seen today in follow-up of lumbar spinal infection. He does not have any new complaints. - Objective Resuscitation Status - Order Detail: 01/15/19 00:21 Resuscitation Status Routine Resuscitation Status: FULL: Full Resuscitation MAR Reviewed: Yes Vital Signs & Weight: Vital Signs (12 hours) Temp Pulse Resp BP Pulse Ox 01/20/19 08:25 97 01/20/19 07:20 97.6 F 70 16 135/84 97 01/20/19 04:22 97.5 F L 64 16 112/73 98 Weight Weight 240 lb I&O: 01/19/19 01/20/19 01/21/19 06:59 06:59 06:59 Intake Total 1250 2560 1200 Balance 1250 2560 1200 Result Diagrams: 01/15/19 05:02 01/15/19 05:02 Phys Exam - Physical Examination HEENT: PERRLA Respiratory: no wheezing, no rales, no rhonchi, clear to auscultation bilateral Cardiovascular: RRR, no significant murmur, no rub Dx/Plan (1) Discitis of lumbar region Code(s): M46.46 - DISCITIS, UNSPECIFIED, LUMBAR REGION Status: Acute Comment : Suspected vs epidural abscess with inflammatory process, continue Cefepime/ Vanc, consider aspiration for fluid sample/cx, pain control, appreciate ID for recommendations, PICC line placement today, plan for outpt IV abx with Cefepime/ Vanc until 02/28/19 (2) DJD (degenerative joint disease), lumbar Code(s): M47.816 - SPONDYLOSIS W/O MYELOPATHY OR RADICULOPATHY, LUMBAR REGION Status: Chronic Qualifiers: Spinal osteoarthritis complication: other spinal osteoarthritis Qualified Code(s): M47.896 - Other spondylosis, lumbar region Comment: Pain control, Neurosurgery consultation appreciated, PT/OT for evaluation - Plan * Lumbar Spinal infection- outpatient IV antibiotics are being arranged. * He is stable for discharge home.
[2019-01-20 12:57] LABS: #Eosinphils 0.4 thou/uL (0.0-0.7); #Lymphocytes 1.6 thou/uL (1.20-3.40); #Monocytes 0.5 thou/uL (0.11-0.59); #Neutrophils 5.3 thou/uL (1.40-6.50); %Basophils 0.5 % (0.0-1.0); %Eosinophils 5.2 % (0.0-10.0); %Lymphocytes 19.9 % (21.0-51.0); %Monocytes 6.8 % (0.0-10.0); %Neutrophils 67.6 % (42.0-75.0); Hemoglobin 14.5 g/dL (14.0-18.0); Mean Corpuscular HGB CONC 31.3 g/dL (32.0-36.0); Mean Corpuscular Hemoglobin 31.1 pg (27.0-31.0); Mean Corpuscular Volume 99.4 fL (78.0-98.0); Mean Platelet Volume 7.8 fL (7.4-10.4); Platelet Count 194 thou/uL (130-400); RBC Distribution Width 11.8 % (11.5-14.5); Red Blood Cell (RBC) Count 4.67 mill/uL (4.70-6.10); White Blood Cell (WBC) Count 7.8 thou/uL (4.8-10.8)
[2019-01-20 13:20] LABS: ALT (SGPT) 57 U/L (8-55); AST (SGOT) 23 U/L (5-34); Albumin 4.3 g/dL (3.5-5.0); Alkaline Phosphatase 111 U/L (40-150); Anion Gap 11 mmol/L (10-20); BUN (Urea Nitrogen) 7 mg/dL (8.4-25.7); Bilirubin, Total 0.6 mg/dL (0.2-1.2); Calc. Creatinine Clearance 161 mL/min (70-130); Calcium 9.7 mg/dL (7.8-10.44); Carbon Dioxide 26 mmol/L (22-29); Chloride 101 mmol/L (98-107); Estimated GFR-MDRD Greater than 90; Globulin 2.5 g/dL (2.4-3.5); Glucose 88 mg/dL (70-105); Potassium 4.2 mmol/L (3.5-5.1); Protein, Total 6.8 g/dL (6.0-8.3); Sodium 134 mmol/L (136-145)
[2019-01-20 15:54] VITALS: BP 124/80; TEMP 97.4
[2019-01-20] MEDS ORDERED: Cefepime 2 GM in Sodium Chloride 0.9% 100 ML IVPB SCH (16:00)
--- NOTE | 2019-01-21 03:50 | DIS ---
DATE OF ADMISSION: 01/14/2019 DATE OF DISCHARGE: 01/20/2019 PRIMARY CARE PHYSICIAN: Dr. Berny Connell. DISCHARGE DISPOSITION: Home. DISCHARGE DIAGNOSES: 1. 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 2. Chronic low back pain. 3. Hyponatremia, resolved. 4. Degenerative joint disease. DISCHARGE MEDICATIONS: Include; 1. Vancomycin 1 g IV q.8 until February 28. 2. Tramadol 50 mg q.i.d. 3. [place] 5/325 one q.6 as needed for pain. 4. Lodine 400 mg twice a day. PROCEDURES DONE DURING THE ADMISSION: The patient had an MRI of the lumbar spine and this showed bilateral L4 spondylosis causing a grade 1 spondylolisthesis at L4 on L5, somewhat severe inflammatory edematous change throughout the posterior elements at L4 and L5 occurring between the spinous processes with a fluid collection between the spinous process and edema. There is severe degenerative disc disease at L4 and L5 with neural foraminal stenosis. The patient had an MRI of the pelvis, showing a linear scar at the right intergluteal region extending on the right side of the upper anal musculature. There was some mild enhancement, but no evidence of any abscess. CODE STATUS: Full code. ALLERGIES: NO KNOWN DRUG ALLERGIES. HOSPITAL COURSE: Mr. May is a pleasant 58-year-old gentleman, who presented to the emergency room with complaints of severe localized back pain. He underwent an MRI in the emergency room and was found to have a lumbar spinal epidural abscess. Neurosurgery as well as infectious disease specialists were consulted. His blood cultures were negative. He was placed empirically on vancomycin and has had improvement with this antibiotic regimen. Once he was stabilized and IV antibiotics were arranged, he was able to be discharged home. Also to make note that the patient had a chronic and intermittent gluteal abscess. He was evaluated by our general surgeon fire control assistant, and it was felt like this was not contributing to his current illness and could be managed in the outpatient setting. Job ID: [id number]
== END 2019-01-20 16:55 | disposition home or self-care (01) | DRG 95 ==
LOC: ERS 17:47 → SURG B 23:41
PROVIDERS: ADMIT Hospitalist; ATTEND Hospitalist
PROC: 02HV33Z Insertion of Infusion Device into Superior Vena Cava, Percutaneous Approach (ICD-10-PCS; principal; 2019-01-18)
PROC: B548ZZA Ultrasonography of Superior Vena Cava, Guidance (ICD-10-PCS; 2019-01-18)
DX: G06.1 Intraspinal abscess and granuloma (principal); E87.1 Hypo-osmolality and hyponatremia; M47.816 Spondylosis without myelopathy or radiculopathy, lumbar region; M19.049 Primary osteoarthritis, unspecified hand; M51.36 Other intervertebral disc degeneration, lumbar region; M48.061 Spinal stenosis, lumbar region without neurogenic claudication; F17.210 Nicotine dependence, cigarettes, uncomplicated; K76.0 Fatty (change of) liver, not elsewhere classified; K60.3 Anal fistula; Z79.899 Other long term (current) drug therapy
CPT/HCPCS: 36415; 36569; 71046; 72148; 72197; 80048; 80053; 80202; 81001; 83605; 85025; 85652; 86140; 87040; 87086; 96365; 96375; C1751; J0692; J1885; J2270; J2405; J3370; J3490; J7050

== ENCOUNTER 2019-02-11 13:21 | Day surgery (SDC) | payer BC ==
[~2019-02-11 13:21] MED LIST: DAPTOmycin 500 MG in Sodium Chloride 0.9% 10 ML IVPB SCH; Ertapenem 1 GM in Sodium Chloride 0.9% 100 ML IVPB SCH
[2019-02-11] MEDS ORDERED: Sodium Chloride 0.9% 30 ML ONE (13:26)
[2019-02-11 13:29] VITALS: BP 140/82; TEMP 97.6
[2019-02-11] MEDS: Activase 2 MG VIAL CATH SCH ×2 (14:20→14:21)
[2019-02-11] MEDS: Sterile Water 10 ML VIAL IVP SCH ×2 (14:21→14:22)
== END 2019-02-11 15:31 | disposition home or self-care (01) ==
LOC: ONC/OP 13:21
PROVIDERS: ATTEND Internal Medicine Infectious Disease
DX: G06.1 Intraspinal abscess and granuloma (principal); Z79.2 Long term (current) use of antibiotics
CPT/HCPCS: 96365; 96375; A4216; J0878; J1335; J1642; J2997; J3490

== ENCOUNTER 2019-04-30 08:38 | Outpatient (CLI) | payer BC ==
[2019-04-30] MEDS ORDERED: Gadobenate Dimeglumine 529 MG/1 ML (20ML VIAL) ONE (09:00)
--- NOTE | 2019-04-30 12:23 | MRI ---
MRI LUMBAR SPINE WITH AND WITHOUT CONTRAST: DATE: 04/30/2019 HISTORY: 58-year-old male with low back pain. ICD-10:46.37, inflammatory spondyloarthropathy lumbar spine COMPARISON: Noncontrast MRI of 01/14/2019 TECHNIQUE: Multiple sequences obtained in axial and sagittal planes, pre and post IV injection of gadolinium-bas ed contrast agent. FINDINGS: For the purposes of this report, it will be assumed that there are 5 lumbar-type vertebrae. Vertebral body heights are maintained. No scoliosis. Conus medullaris terminates at L1. Cauda equina is arranged in a symmetrical, normal di stribution throughout the thecal sac. There is no significant central spinal canal stenosis at any level. T12-L1:Normal L1-2:Normal L2-3:Somewhat severe disc space narrowing. Endplate irregularity. Small focus of edema and enhancemen t of bone marrow around Schmorl's node at posterior aspect of L1 inferior endplate. Slight degenerative retrolisthesis of L2 on L3 and diffuse disc bulge encroach upon the ventral aspect of th e spinal canal. No neural foraminal stenosis. Small bilateral facet joint effusions, but no high-grade facet DJD. No interval change. L3-4:Disc space maintained. No mural foraminal stenosis. Mild to moderate bilateral facet DJD. The lynnette ne marrow edema throughout the L3 and L4 spinous processes remains but has slightly improved. Heterogeneously T1 hyperintense, T2 hyperintense, and enhancement, involving a broad thin layer which have the appearance of complex fluid, between the L3 and L4 spinous processes. This appears to communicate with the right facet joint effusion is a thin track. The edema in the soft tissues surrou nding the right facet complex has worsened. The edema in the soft tissues surrounding the left facet complex has decreased in extent, and now appears more focal. Small left facet joint effusion. T he previously extensive soft tissue edema in the retrospinal soft tissues has become less severe and less extensive in extent. It previously extended from the T12-L1 to the sacral level. L4-5:Bilateral L4 pars interarticularis defects result in grade 1 anterolisthesis of L4 on L5. Severe disc space narrowing with endplate irregularity and Modic type I bone marrow edema of the endplates finding of a small patchy region of T2 hyperintense signal with enhancement in the anterior aspect of the disc space at midline and on the left. This is nonspecific, and could represent annular fissure or early discitis-osteomyelitis. The former is favored. 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 No thecal sac stenosis. There is s evere right neural foraminal stenosis with compression and the formation of the exiting right L4 nerve root by the pedicle superior to it and bilateral lateral component of disc bulge and vertebral body inferior to it. Moderate stenosis of the left neural foramen. Enhancement of soft tissues in the right neural foramen. No major interval change in the degree of neural foraminal stenosis.. L5-S1:Disc space maintained. Mild disc bulge. Mild bilateral neural foraminal stenosis. No interval c hange. IMPRESSION: 1) bilateral L4 spondylolysis causing grade 1 spondylolisthesis at L4-5. 2) the edematous/inflammatory changes throughout the posterior elements at L3-4 and L4-5 have improve d but not resolved. The edematous, enhancing material between the L3 and L4 spinous processes, has not significantly changed, but the edema in the soft tissues posterior to the spine has significantly improved.. 3) severe degenerative disc disease at L4-5 with Modic type I marrow edema. 4) new small focus of edema and enhancement at the anterior aspect of the L4-5 disc space probably re presents annular fissure, less likely discitis. 5) severe chronic right neural foraminal stenosis at L4-5, chronically severely compressing the exiti ng right L4 nerve root, unchanged. 6) the previously demonstrated moderate thecal sac stenosis at L4-5 has resolved. The resolution coul d be due to improvement in the inflammatory epidural soft tissues right and left laterally at that level. 7) no central spinal canal stenosis at any level.
== END 2019-04-30 08:39 | disposition home or self-care (01) ==
LOC: SCSMRI 08:38
PROVIDERS: ATTEND Internal Medicine Infectious Disease
DX: M46.37 Infection of intervertebral disc (pyogenic), lumbosacral region (principal); M47.816 Spondylosis without myelopathy or radiculopathy, lumbar region; M43.16 Spondylolisthesis, lumbar region; M48.061 Spinal stenosis, lumbar region without neurogenic claudication; M51.36 Other intervertebral disc degeneration, lumbar region
CPT/HCPCS: 72158; 82565

== ENCOUNTER 2019-07-27 07:40 | Outpatient (CLI) | payer BC ==
--- NOTE | 2019-07-27 09:25 | MRI ---
EXAM: MRI lumbar spine without and with contrast HISTORY: Infection of intervertebral disc. Severe low back pain with numbness and tingling in the jacinta ateral legs, right greater than left. COMPARISON: 04/30/2019 TECHNIQUE: Multiple planar multisequence MR images were obtained of the lumbar spine without and with contrast. FINDINGS: The vertebral bodies demonstrate normal height and alignment without fracture or subluxation. Disc de siccation and loss of height is seen at L4/5. Endplate degenerative changes are seen at L4/5. Less pronounced edema is seen in the posterior elements at L3 and L4. The fluid between the L3 and L4 spin ous processes has decreased in size. There appear to be developing pars defects at L4. Minimal enhancement is seen between L3 and L4 spinous processes. The prevertebral soft tissues are unremarkable. The conus medullaris terminates normally at T12/L1. T12/L1: No significant posterior bulge or protrusion. No posterior facet arthrosis. No central ruth ann l stenosis. No neural foraminal stenosis L1/2: No significant posterior bulge or protrusion. No posterior facet arthrosis. No central canal stenosis. No neural foraminal stenosis L2/3: Small disc osteophyte complex. Mild bilateral posterior facet arthrosis. Mild central canal s tenosis. No neural foraminal stenosis L3/4: No significant posterior bulge or protrusion. Mild bilateral posterior facet arthrosis. No ce ntral canal stenosis. No neural foraminal stenosis L4/5: Small generalized concentric disc bulge. No posterior facet arthrosis. Mild central canal jairon nosis. Severe right and moderate left neural foraminal stenosis. This is unchanged compared to the prior exam. L5/S1: A small generalized concentric disc bulge is associated with a superimposed small central prot rusion. Mild bilateral posterior facet arthrosis. Minimal central canal stenosis. Mild to moderate bilateral neural foraminal stenosis IMPRESSION: 1. Improving edema and enhancement within the paraspinal soft tissues and posterior elements. 2. Degenerative changes as above, greatest at L4/5. 3. There are questionable evolving and developing pars defects at L4.
== END 2019-07-27 07:41 | disposition home or self-care (01) ==
LOC: BICMRI 07:40
PROVIDERS: ATTEND Internal Medicine Infectious Disease
DX: M46.37 Infection of intervertebral disc (pyogenic), lumbosacral region (principal); M47.816 Spondylosis without myelopathy or radiculopathy, lumbar region
CPT/HCPCS: 72158; 82565

== ENCOUNTER 2021-12-24 09:40 | Outpatient (CLI) | payer MEDICARE | END 2021-12-24 09:41 | disposition home or self-care (01) | LOC: SCSMRI 09:40 | PROVIDERS: ATTEND Internal Medicine Infectious Disease | DX: M46.47 Discitis, unspecified, lumbosacral region (principal); M47.816 Spondylosis without myelopathy or radiculopathy, lumbar region | CPT/HCPCS: 72158 ==